=== PATIENT | male | born 1965 | race Caucasian/White ===

== ENCOUNTER 2024-09-22 11:43 | Emergency (ER) | payer BC ==
[2024-09-22 11:58] VITALS: BP 145/85; PULSE 82; RESP 15; BMI 20.9
== END 2024-09-22 12:42 | disposition home or self-care (01) ==
LOC: FER 11:43
PROC: 0PSVXZZ Reposition Left Finger Phalanx, External Approach (ICD-10-PCS; principal; 2024-09-22)
DX: S62.617A Displaced fracture of proximal phalanx of left little finger, initial encounter for closed fracture (principal); W21.03XA Struck by baseball, initial encounter; Y93.64 Activity, baseball
CPT/HCPCS: 73140-TC-LT-FY; 99283-25